=== PATIENT | male | born 1995 | race African-American/Black ===

== ENCOUNTER 2018-08-28 00:35 | Emergency (ER) | payer OTHER ==
[2018-08-28 00:41] VITALS: BP 160/87
[2018-08-28] MEDS ORDERED: DOCUSATE SODIUM 100 MG CAPSULE PO ONE (00:58)
--- NOTE | 2018-08-28 01:04 | ER Document Report ---
ED General - General Chief Complaint: Rectal Pain Stated Complaint: RECTAL PAIN Time Seen by Provider: 08/28/18 00:51 Notes: Patient is a 22-year-old male without chronic medical problems who presents with concerns of rectal hemorrhage. The patient reports that he has been straining to have bowel movements which is a long-standing issue for him but has been much worse as of late. States that after his last bowel movement when he had strained to pass stool he noticed that when he wiped there was blood on the tissue paper. States that when he has bowel movements they are pellet-like , very firm. Admits to a very poor dietary intake of fiber. He denies any abdominal pain. He denies any significant quantity of bleeding. No history of similar symptoms in the past. He has not seen his general doctor regarding today's concerns. He has not trying to treat his symptoms and has not noted that anything seems to worsen his symptoms. He denies any lightheadedness, syncope, exertional fatigue or shortness of breath. TRAVEL OUTSIDE OF THE [place] IN LAST 30 DAYS: No - Related Data Allergies/Adverse Reactions: No Known Allergies Allergy (Unverified 08/28/18 00:37) Past Medical History - General Information source: Patient - Social History Smoking Status: Never Smoker Frequency of alcohol use: None Drug Abuse: None Lives with: Spouse/Significant other Family History: Reviewed & Not Pertinent Review of Systems - Review of Systems Notes: Constitutional: Negative for fever. HENT: Negative for sore throat. Eyes: Negative for visual changes. Cardiovascular: Negative for chest pain. Respiratory: Negative for shortness of breath. Gastrointestinal: Positive for constipation, external hemorrhoids and rectal bleeding Genitourinary: Negative for dysuria. Musculoskeletal: Negative for back pain. Skin: Negative for rash. Neurological: Negative for headaches, weakness or numbness. 10 point ROS negative except as marked above and in HPI. Physical Exam - Vital signs Vitals: Temp Pulse Resp BP Pulse Ox 98.1 F 100 16 160/87 H 98 08/28/18 00:40 08/28/18 00:40 08/28/18 00:40 08/28/18 00:40 08/28/18 00:40 Interpretation: Normal Notes: PHYSICAL EXAMINATION: GENERAL: Well-appearing, well-nourished and in no acute distress. HEAD: Atraumatic, normocephalic. EYES: Pupils equal round and reactive to light, extraocular movements intact, sclera anicteric, conjunctiva are normal. ENT: nares patent, oropharynx clear without exudates. Moist mucous membranes. NECK: Normal range of motion, supple without lymphadenopathy LUNGS: Breath sounds clear to auscultation bilaterally and equal. No wheezes rales or rhonchi. HEART: Regular rate and rhythm without murmurs ABDOMEN: Soft, nontender, normoactive bowel sounds. No guarding, no rebound. No masses appreciated. Rectal: Multiple external nonthrombosed hemorrhoids without active bleeding. EXTREMITIES: Normal range of motion, no pitting or edema. No cyanosis. NEUROLOGICAL: No focal neurological deficits. Moves all extremities spontaneously and on command. PSYCH: Normal mood, normal affect. SKIN: Warm, Dry, normal turgor, no rashes or lesions noted. Course - Re-evaluation Re-evalutation: 08/28/18 00:58 Presentation is most consistent with uncomplicated external hemorrhoids. Patient has not had any significant bleeding at home and there is no indication for a CBC. Patient's abdominal exam is otherwise benign. I do not suspect a more significant lower GI bleed or upper GI bleed based on history, vitals, normal hemoglobin, and patient's overall well appearance. At this time will discharge with return precautions and follow-up recommendations. Verbal discharge instructions given a the bedside and opportunity for questions given. Medication warnings reviewed. Patient is in agreement with this plan and has verbalized understanding of return precautions and the need for primary care follow-up in the next 24-72 hours. - Vital Signs Vital signs: Temp Pulse Resp BP Pulse Ox 98.1 F 100 16 160/87 H 98 08/28/18 00:40 08/28/18 00:40 08/28/18 00:40 08/28/18 00:40 08/28/18 00:40 Discharge - Discharge Clinical Impression: External hemorrhoids, Rectal bleeding Constipation Qualifiers: Constipation type: unspecified constipation type Qualified Code(s): K59.00 - Constipation, unspecified Condition: Good Disposition: HOME, SELF-CARE Additional Instructions: You were seen today for hemorrhoids. The best treatment is to avoid straining while having bowel moments, avoiding heavy lifting, or any other activity that causes you to bear down forcefully. You need to make sure that your stools are soft and should start taking Docusate 200mg in the morning and at night until your stools are very soft and you can have a bowel movement without any straining. I would also strongly advised you to begin supplement and fiber into your diet generally 10 g daily is sufficient. I would also advise that you eat a healthy diet full of fruits and vegetables and drink plenty of water. You can also soak in warm water, apply topical hemorrhoid cream that can be purchased at the store, and take tylenol or ibuprofen per box instructions as needed for pain. Please follow-up with your primary doctor. Return if you begin to have persistent bleeding, worsening pain, abdominal pain, fever >101, or any other symptoms that are concerning to you.
== END 2018-08-28 01:16 | disposition home or self-care (01) ==
LOC: ER 00:35
DX: K64.4 Residual hemorrhoidal skin tags (principal); K59.00 Constipation, unspecified; K62.89 Other specified diseases of anus and rectum
CPT/HCPCS: 99283

== ENCOUNTER 2020-06-17 20:49 | Emergency (ER) | payer SELFPAY ==
--- NOTE | 2020-06-17 22:22 | ER Document Report ---
ED Medical Screen (RME) - General Chief Complaint: Chest Pain Stated Complaint: CHEST PAIN Time Seen by Provider: 06/17/20 22:16 Mode of Arrival: Ambulatory Information source: Patient Notes: 24-year-old male presents to ED for complaint of shortness of breath and chest pain for the last 3 days. He states he has not been to see a doctor he has not seen anybody. He denies any fevers or any other symptoms but the shortness of breath and chest pain. He does state he smokes 4 cigarettes a day does not drink or use any drugs. He states he does have a history of shingles but no other medical history. Patient is alert oriented respirations regular nonlabored speaking in full sentences. TRAVEL OUTSIDE OF THE [place] IN LAST 30 DAYS: No - Related Data Allergies/Adverse Reactions: No Known Allergies Allergy (Verified 08/28/18 01:10) Past Medical History - Social History Chew tobacco use (# tins/day): No Frequency of alcohol use: None Drug Abuse: None Renal/ Medical History: Denies: Hx Peritoneal Dialysis Physical Exam - Vital signs Vitals: Temp Pulse Resp BP Pulse Ox 98.5 F 70 16 136/73 H 100 06/17/20 21:07 06/17/20 21:07 06/17/20 21:07 06/17/20 21:07 06/17/20 21:07 Course - Vital Signs Vital signs: Temp Pulse Resp BP Pulse Ox 98.5 F 70 16 136/73 H 100 06/17/20 21:07 06/17/20 21:07 06/17/20 21:07 06/17/20 21:07 06/17/20 21:07
--- NOTE | 2020-06-17 23:04 | RADIOLOGY REPORT (SQ) ---
XR CHEST 1 VIEW CLINICAL STATEMENT: chest pain short of breath x 3 days COMPARISON: None FINDINGS: Cardiomediastinal silhouette is within normal limits. There is no focal lung consolidation or pleural effusion. No evidence of pulmonary edema or pneumothorax. IMPRESSION: No acute cardiopulmonary disease.
[2020-06-17 23:18] LABS: ABSOLUTE EOSINOPHILS # (AUTO) 0.2 10^3/uL (0.0-0.6); ABSOLUTE LYMPHOCYTES (AUTO) 3.3 10^3/uL (0.5-4.7); ABSOLUTE MONOCYTES (AUTO) 0.6 10^3/uL (0.1-1.4); ABSOLUTE NEUT (AUTO) 1.6 10^3/uL (1.7-8.2); BASOPHILS % (AUTO) 0.6 % (0-2); HEMATOCRIT 43.8 % (37.9-51.0); HEMOGLOBIN 14.6 g/dL (13.5-17.0); LYMPHOCYTES % (AUTO) 57.2 % (13-45); MEAN CORPUSCULAR HGB CONC 33.3 g/dL (32.0-36.0); MEAN CORPUSCULAR VOLUME 87 fl (80-97); MONOCYTES % (AUTO) 10.8 % (3-13); PLATELET COUNT 166 10^3/uL (150-450); RED BLOOD COUNT 5.03 10^6/uL (4.35-5.55); SEGMENTED NEUTROPHILS % (AUTO) 28.4 % (42-78); TOTAL CELLS COUNTED % (AUTO) 100 %; WHITE BLOOD COUNT 5.8 10^3/uL (4.0-10.5)
[2020-06-17 23:33] LABS: ALBUMIN 4.1 g/dL (3.5-5.0); ALKALINE PHOSPHATASE 34 U/L (38-126); ANION GAP 6 (5-19); ASPARTATE AMINO TRANSFERASE 25 U/L (17-59); BILIRUBIN,DIRECT 0.3 mg/dL (0.0-0.4); BILIRUBIN,TOTAL 0.3 mg/dL (0.2-1.3); BLOOD UREA NITROGEN 9 mg/dL (7-20); CARBON DIOXIDE 24 mmol/L (22-30); CHLORIDE 109 mmol/L (98-107); GLUCOSE 95 mg/dL (75-110); POTASSIUM 3.9 mmol/L (3.6-5.0); TOTAL PROTEIN 7.1 g/dL (6.3-8.2)
[2020-06-18] MEDS ORDERED: KETOROLAC TROMETHAMINE 60 MG/2 ML SDV IM ONE (04:29)
--- NOTE | 2020-06-18 04:30 | ER Document Report ---
ED Cardiac - General Chief Complaint: Chest Pain Stated Complaint: CHEST PAIN Time Seen by Provider: 06/17/20 22:16 Primary Care Provider: KRISSY GLORIA MD [COMMUNITY BASED STAFF] - Follow up as needed Mode of Arrival: Ambulatory Information source: Patient Notes: 24-year-old male with no previous medical problems presents to the emergency room complaining of chest tightness for the past 3 days. States is been a constant pain. He denies any trauma or injury. No cardiac history. No medications for symptoms. Denies any fevers. No cough, no shortness of breath, no difficulty breathing. No recent travel. No COVID-19 exposure. TRAVEL OUTSIDE OF THE [place] IN LAST 30 DAYS: No - Related Data Allergies/Adverse Reactions: No Known Allergies Allergy (Verified 08/28/18 01:10) Past Medical History - General Information source: Patient - Social History Smoking Status: Current Every Day Smoker Chew tobacco use (# tins/day): No Frequency of alcohol use: None Drug Abuse: None Family History: Reviewed & Not Pertinent Patient has homicidal ideation: No Renal/ Medical History: Denies: Hx Peritoneal Dialysis Review of Systems - Review of Systems Constitutional: No symptoms reported EENT: No symptoms reported Cardiovascular: Chest pain Respiratory: denies: Cough, Short of breath Gastrointestinal: No symptoms reported Musculoskeletal: No symptoms reported Skin: No symptoms reported Neurological/Psychological: No symptoms reported -: Yes All other systems reviewed and negative Physical Exam - Vital signs Vitals: Temp Pulse Resp BP Pulse Ox 98.5 F 70 16 136/73 H 100 06/17/20 21:07 06/17/20 21:07 06/17/20 21:07 06/17/20 21:07 06/17/20 21:07 - Notes Notes: GENERAL: Mild acute distress, non-toxic appearance. HEAD: Normal with no signs of head trauma. EYES: PERRLA, EOMI, conjunctiva normal, no discharge. EARS: Hearing grossly intact. NOSE: Normal. THROAT: Oropharynx is normal. NECK: Normal range of motion, no tenderness, supple, no lymphadenopathy, No adenopathy, no JVD. CHEST: Clear breath sounds bilaterally. No wheezes, rales, or rhonchi. Mild tenderness on palpation to the midsternal region. CARDIAC: Regular rate and rhythm. S1 and S2, without murmurs, gallops, or rubs. VASCULAR: No Edema. Peripheral pulses normal and equal in all extremities. ABDOMEN: Normal and soft with no tenderness, no masses or pulsatile masses. No organomegaly. Positive bowel sounds x4. No CVA tenderness noted bilaterally. GASTROINTESTINAL: Bowel sounds normal LYMPATHTIC: No lymphadenopathy noted. MUSCULOSKELETAL: Good range of motion of all major joints. Extremities without clubbing, cyanosis or edema. NEUROLOGICAL: Alert and oriented x 3. No focal sensory or strength deficits. Speech normal. Follows commands appropriately. PSYCHIATRIC: Normal Affect, judgement and mood. SKIN: Normal appearance with no rashes or lesions. Course - Re-evaluation Re-evalutation: 06/18/20 04:34 Patient is resting minimal pain. Reviewed all test results including EKG with patient. Counseled take Tylenol and or Motrin as needed for pain. Outpatient follow-up with primary care physician in 2 to 3 days. On-call physician was provided. Was given IM Toradol prior to discharge. Patient was given strict return to the emergency room guidelines. Return for any new or worsening symptoms. All questions were answered. Patient verbalized understanding and agrees with plan of care. HEART Score: History 0 ECG 0 Age 0 Risk Factors 0 Troponin 0 Total: 0 Chest pain in a patient without evidence of cardiac or other serious etiology on workup today. I discussed with patient that, based on their age, risk factors and emergency department testing today, the likelihood that their symptoms are related to a heart attack is very low (estimated risk of heart attack or over the next 30 days of less than 1%). The patient demonstrates decision making capacity and has verbalized an understanding of these risks to me. Based on this, the patient has chosen to follow-up as an outpatient. Usual chest pain return precautions reviewed. The patient states understanding and agreement with this plan. 06/18/20 07:40 - Vital Signs Vital signs: Temp Pulse Resp BP Pulse Ox 98.1 F 53 L 18 134/76 H 99 06/18/20 04:41 06/18/20 04:41 06/18/20 04:41 06/18/20 04:41 06/18/20 04:41 - Laboratory Result Diagrams: 06/17/20 23:04 06/17/20 23:04 Laboratory results interpreted by me: 06/17/20 06/17/20 23:04 23:04 Lymph % (Auto) 57.2 H Absolute Neuts (auto) 1.6 L Seg Neutrophils % 28.4 L Chloride 109 H Alkaline Phosphatase 34 L - Diagnostic Test Radiology reviewed: Reports reviewed - EKG Interpretation by Me EKG shows normal: Sinus rhythm Rate: Normal Additional EKG results interpreted by me: 06/18/20 04:43 EKG was interpreted by ER physician Dr. Licea No acute STEMI Normal sinus rhythm Rate [address] wave abnormalities No previous EKG for comparison Discharge - Discharge Clinical Impression: Chest pain of unknown etiology, Chest wall pain Condition: Stable Disposition: HOME, SELF-CARE Instructions: Chest Pain of Unclear Cause ([facility]), Chest Wall Pain ([facility]) Additional Instructions: You were seen today for chest pain. The exact cause of your pain is unclear. However, based on your cardiac enzyme testing, chest x-ray, and EKG it does not appear that it is from an immediately life-threatening cause at this time. Although your testing here is normal is critical that you follow-up with a primary care physician for continued evaluation of this chest pain and possible further testing. Please return to emergency department immediately if you have worsening of your chest pain, shortness of breath, vomiting, become unable to exert yourself due to pain or difficulty breathing, you pass out, or have any pain that radiates into your arms, jaw, or back. Please also return if you have any additional symptoms that are concerning to you. Take Tylenol and/or Motrin as needed for pain. Forms: Return to Work Referrals: KRISSY GLORIA MD [COMMUNITY BASED STAFF] - Follow up as needed
[2020-06-18 04:42] VITALS: BP 134/76
--- NOTE | 2020-06-18 15:16 | EKG REPORT ---
SEVERITY:- NORMAL ECG - SINUS RHYTHM : Confirmed by: Sasha Cavazos MD 18-Jun-2020 15:14:53
== END 2020-06-18 05:01 | disposition home or self-care (01) ==
LOC: ER 20:49
DX: R07.9 Chest pain, unspecified (principal); R07.89 Other chest pain; R06.02 Shortness of breath; F17.210 Nicotine dependence, cigarettes, uncomplicated
CPT/HCPCS: 93005; 99285; 96372; 36415; 83735; 85025; 80053; 84484; 71045; 93010; J1885

== ENCOUNTER 2020-09-16 18:46 | Emergency (ER) | payer SELFPAY ==
--- NOTE | 2020-09-16 20:24 | ER Document Report ---
ED Hand/Wrist Injury - General Chief Complaint: Wrist Pain Stated Complaint: WRIST PAIN Time Seen by Provider: 09/16/20 20:17 Primary Care Provider: ROBERTO MONTERROSO DO [ACTIVE STAFF] - Follow up as needed Mode of Arrival: Ambulatory Information source: Patient TRAVEL OUTSIDE OF THE [place] IN LAST 30 DAYS: No - HPI Patient complains to provider of: Bump on his left wrist Notes: Patient here with complaints of noticing a bump on his left wrist about 4 months ago. Last few weeks it seems to have gotten bigger and causing some mild pain. 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 He denies any recent falls, trauma or injury. No fever. No redness. Occasionally he has some numbness and tingling to his hand but denies any numbness tingling now. He denies any chest pain or shortness of breath. No rashes. No abdominal pain. No nausea, vomiting, diarrhea. Pain is constant, mild to moderate, worse with movement and palpation, better with rest. No other complaints at this time. - Related Data Allergies/Adverse Reactions: No Known Allergies Allergy (Verified 09/16/20 20:20) Past Medical History - Social History Smoking Status: Never Smoker Frequency of alcohol use: Rare Drug Abuse: None Family History: Reviewed & Not Pertinent Patient has homicidal ideation: No Renal/ Medical History: Denies: Hx Peritoneal Dialysis Review of Systems - Review of Systems -: Yes All other systems reviewed and negative Physical Exam - Vital signs Vitals: Temp Pulse Resp BP Pulse Ox 98.2 F 65 18 114/65 100 09/16/20 19:28 09/16/20 19:28 09/16/20 19:28 09/16/20 19:28 09/16/20 19:28 - Notes Notes: GENERAL: alert, cooperative, nontoxic, no distress. HEAD: normocephalic, atraumatic EYES: conjunctiva pink without discharge, no external redness or swelling. EARS: no external swelling, no external redness NOSE: atraumatic, no external swelling MOUTH/THROAT: mucous membranes moist and pink NECK: soft, supple, full range of motion, no meningismus. CHEST: no distress, lungs clear and equal throughout. No wheezing, rales, rhonchi. CARDIAC: regular rate and rhythm, no murmur EXTREMITIES: full range of motion of all extremities. No redness, no swelling. Small ganglion cyst noted to the dorsum of the left wrist. Skin is normal with no redness. Mild tenderness to palpation. Full range of motion of the wrist. Normal pulse, cap refill and sensation distally. NEURO: alert and oriented 3, no focal deficits, full range of motion of all extremities. PYSCH: appropriate mood, affect. Patient is cooperative. SKIN: pink, warm, dry, no rash. Course - Re-evaluation Re-evalutation: 09/16/20 20:28 Patient nontoxic-appearing stable vitals. Here with complaints of swelling to the left wrist. Patient does a lots of repetitive movement as he does breast pulling at the chicken plant. Patient states he had this bump for about 4 months it seems to have gotten bigger, more painful and occasionally causes some numbness and tingling to the hand. Overall the patient looks well. He is noted to have a ganglion cyst of the dorsum of the left wrist. There is no signs of infection or abscess. Neurovascular is intact at this time. Patient's had no recent injury, no x-rays will be indicated at this time. Overall the patient looks extremely well and will be instructed to follow-up with orthopedics if he continues to have pain or swelling to this area. Follow-up sooner for worsening pain, fever, redness, numbness, tingling, weakness, any further concerns. The patient's emergency department workup and current diagnosis were explained to the patient and or family. Follow-up instructions were provided. Medications if prescribed were discussed. Instructions for when to return to the emergency department including specific worrisome symptoms were discussed with the patient and/or family. - Vital Signs Vital signs: Temp Pulse Resp BP Pulse Ox 98.2 F 65 18 114/65 100 09/16/20 19:28 09/16/20 19:28 09/16/20 19:28 09/16/20 19:28 09/16/20 19:28 - Laboratory Results Critical Laboratory Results Reviewed: No Critical Results - Radiology Results Critical Radiology Results Reviewed: No Critical Results Discharge - Discharge Clinical Impression: Ganglion cyst of dorsum of left wrist Condition: Stable Disposition: HOME, SELF-CARE Instructions: Ganglion Cyst ([facility]) Additional Instructions: Take medication as prescribed. Apply ice to the sore area. Follow-up with orthopedics at the next available appointment. Follow-up sooner for worsening pain, fever, redness, numbness, tingling, weakness, any further concerns. Prescriptions: Diclofenac Sodium [Voltaren 50 Mg Tablet.] 50 mg PO BID #20 tablet. Referrals: ROBERTO MONTERROSO DO [ACTIVE STAFF] - Follow up as needed
[2020-09-16 20:34] VITALS: BP 119/67
== END 2020-09-16 20:31 | disposition home or self-care (01) ==
LOC: ER 18:46
DX: M67.432 Ganglion, left wrist (principal)
CPT/HCPCS: 99283